=== PATIENT | male | born 1960 | race Caucasian/White ===

== ENCOUNTER 2023-03-13 13:30 | Outpatient (REF) | payer BC, SELFPAY ==
--- NOTE | 2023-03-13 07:40 | TONSIL_PTH ---
PATIENT: Ladan White LOC: [facility] U#:[id number] AGE/SX: 62/M ROOM: RE03/13/[address]: Brandyn Fountain MD : 1960 BED: DIS: 03/13/2023 SPEC #: [id number] RECD: 03/13/23 13:33 STATUS: ADELSO RE #: [id number] DMITRI: 03/13/23 07:[address]: Brandyn Fountain DEPT: Surgical Specimen RECD BY: Karlie Pinzon ENTERED: 03/13/23 13:34 SP TYPE: TONSIL OTHR DR: Cass Rico Tissues: 1 - TONSIL BIOPSY Procedures: GROSS AND MICRO LEVEL 4 Comments: [id number]
--- OUTSIDE RECORDS SUMMARY | 2023-03-13 13:33 | XMS_ITS | Continuity of Care Document ---
Author Name Unknown Organization [facility] Address [address] [place] [address] Care Team Providers [employer] Name Role Phone Cass Rico Primary Care Physician Encounter [facility] FIN NBR [id number] Date(s): 09/25/22 - 09/25/[address] [address]- Discharge Disposition: Home or Self Care Attending Physician: Cass Rico Admitting Physician: Cass Rico Referring Physician: Cass Rico Assessment and Plan Future Scheduled Tests Laboratory* CBC w/ Diff 09/25/22 * PSA Screen 09/25/22 Results Radiology Reports * Exam Date Time Procedure Performing Provider Status 09/25/22 11:21 AM XR Knee 1 or 2 Views Right [place], [place]; Auth (Verified) Notes: (XR Knee 1 or 2 Views Right) Reason For Exam: M25.561-Pain in right knee;M25.561-Pain in right knee XR Knee 1 or 2 Views Right EXAM DESCRIPTION: XR Knee 1 or 2 Views Right 09/25/2022 INDICATION: M25.561-PAIN IN RIGHT KNEE COMPARISON: None IMPRESSION: No acute fracture or dislocation Medial femorotibial compartment joint space narrowing consistent with mild arthritic changes No focal lytic or sclerotic lesion. JOB #: [id number] Final Signed by: Roscoe Monsivais MD Signed (Electronic Signature): 09/25/2022 11:22 am XR Knee - right 1 or 2 Views * Roscoe Monsivais MD: VERIFY, VERIFY Event Display: Report EXAM DESCRIPTION: XR Knee 1 or 2 Views Right 09/25/2022 INDICATION: M25.561-PAIN IN RIGHT KNEE COMPARISON: None IMPRESSION: No acute fracture or dislocation Medial femorotibial compartment joint space narrowing consistent with mild arthritic changes No focal lytic or sclerotic lesion. JOB #: [id number] Final Signed by: Roscoe Monsivais MD Signed (Electronic Signature): 09/25/2022 11:22 am Patient Care team information Personnel Name: Cass Page Address: Address: [address] [place] [id number]
== END 2023-03-13 13:31 | disposition home or self-care (01) ==
LOC: LBN 13:30
PROVIDERS: PCP Nurse Practitioner Family; Visit Provider Otolaryngology
DX: J35.8 Other chronic diseases of tonsils and adenoids (principal)
CPT/HCPCS: 88305